=== PATIENT | female | born 1960 | race African-American/Black ===

== ENCOUNTER 2023-06-27 09:53 | Emergency (ER) | payer OTHER, SELFPAY ==
[2023-06-27 10:04] VITALS: BP 161/94
[2023-06-27 11:41] VITALS: BMI 41.8
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
[2023-06-27 12:18] LABS: Carboxyhemoglobin 3.8 %
[2023-06-27 12:22] LABS: % Basophils 0.5 % (0-2); % Eosinophils 4.6 % (0-6); % Immature Granulocytes 0.3 % (0-0.5); % Lymphocytes 29.2 % (20.5-51.1); % Neutrophils 56.4 % (42.2-75.2); Absolute Eosinophils 0.2 10^3/uL (0-0.7); Absolute Lymphocytes 1.1 10^3/uL (1.2-3.4); Absolute Monocytes 0.4 10^3/uL (0.1-0.6); Absolute Neutrophils 2.2 10^3/uL (1.4-6.5); Hematocrit 41.5 % (37.0-47.0); Hemoglobin 14.1 g/dL (12.0-16.0); Mean Corpuscular Hgb 27.8 pg (27.0-31.0); Mean Corpuscular Volume 81.9 fL (81.0-99.0); Nucleated Red Blood Cells % 0 %; Red Blood Cell Count 5.07 10^6/uL (4.20-5.40); Red Cell Dist. Width 13.8 % (11.5-14.5); White Blood Cell Count 3.9 10^3/uL (4.8-10.8)
[2023-06-27 12:36] LABS: Blood Urea Nitrogen 21 mg/dl (7-17); Calcium 9.1 mg/dl (8.4-10.2); Carbon Dioxide 26 mmol/L (22-30); Chloride 108 mmol/L (98-107); Estimated Creatinine Clearance 83 ml/min; Glucose 84 mg/dl (70-99); Potassium 4.2 mmol/L (3.5-5.1); Sodium 136 mmol/L (135-145); eGFR > 60.00
[2023-06-27 12:43] LABS: Troponin I < 0.012 ng/ml
== END 2023-06-27 14:02 | disposition home or self-care (01) ==
LOC: EMR 09:53
PROVIDERS: Physician Assistant; EMERGENCY PHYSICIAN Emergency Medicine; FAMILY PHYSICIAN Physician Assistant
DX: Z77.29 Contact with and (suspected) exposure to other hazardous substances (principal); R51.9 Headache, unspecified; R07.89 Other chest pain
CPT/HCPCS: 99285; 71046; 80048; 82375; 84484; 85025; 93005

== ENCOUNTER → 2023-09-07 06:55 | Outpatient (REF) | payer OTHER, SELFPAY | LOC: HWWDC 06:55 | PROVIDERS: ATTENDING PHYSICIAN Physician Assistant | DX: Z12.31 Encounter for screening mammogram for malignant neoplasm of breast (principal) | CPT/HCPCS: 77063; 77067 ==

== ENCOUNTER → 2023-09-28 07:05 | Outpatient (REF) | payer BC, SELFPAY | LOC: HWRAD 07:05 | PROVIDERS: ATTENDING PHYSICIAN Physician Assistant | DX: R10.33 Periumbilical pain (principal); E04.1 Nontoxic single thyroid nodule | CPT/HCPCS: 76536; 76705 ==

== ENCOUNTER → 2024-12-02 07:06 | Outpatient (REF) | payer BC, SELFPAY | LOC: HWRAD 07:06 | PROVIDERS: ATTENDING PHYSICIAN Student in an Organized Health Care Education/Training Program | DX: S01.502D Unspecified open wound of oral cavity, subsequent encounter (principal) | CPT/HCPCS: 76536 ==

== ENCOUNTER → 2025-01-30 06:44 | Outpatient (REF) | payer BC, SELFPAY | LOC: HWRAD 06:44 | PROVIDERS: ATTENDING PHYSICIAN Student in an Organized Health Care Education/Training Program; REFERRING PHYSICIAN Dentist Oral and Maxillofacial Surgery | DX: R68.84 Jaw pain (principal) | CPT/HCPCS: 70110 ==